=== PATIENT | female | born 1960 | race Asian ===

== ENCOUNTER 2018-08-06 11:51 | Emergency (ER) | payer OTHER ==
[~2018-08-06] VITALS: Ht 167.6 cm; Wt 89.8 kg
[2018-08-06 12:10] VITALS: BP 152/88; TEMP 99.2
[2018-08-06] MEDS ORDERED: ASA LOW DOSE81 MG PO (12:19)
[2018-08-06] MEDS ORDERED: LEXAPRO10 MG PO (12:20)
[2018-08-06] MEDS ORDERED: RANI150T78 PO (12:21)
[2018-08-06] MEDS ORDERED: TIROSINT100 MCG PO (12:22)
[2018-08-06] MEDS ORDERED: AMLODIPINE BESYLATE PO (12:23)
[2018-08-06] MEDS ORDERED: METOPROLOL25 M1 PO (12:23)
[2018-08-06] MEDS ORDERED: MAG OXIDE400 M2 PO (12:24)
[2018-08-06 14:15] LABS: PLATELET COUNT 279 K/uL (152-353)
== END 2018-08-06 15:11 | disposition home or self-care (01) ==
LOC: ED 11:51
DX: M47.896 Other spondylosis, lumbar region (principal)
CPT/HCPCS: 36415; 85027; 99283

== ENCOUNTER 2018-08-28 12:46 | Emergency (ER) | payer OTHER ==
[~2018-08-28] VITALS: Ht 167.6 cm; Wt 89.8 kg
[~2018-08-28 12:46] MED LIST: AMLODIPINE BESYLATE PO; ASA LOW DOSE81 MG PO; LEXAPRO10 MG PO; MAG OXIDE400 M2 PO; METOPROLOL25 M1 PO; RANI150T78 PO; TIROSINT100 MCG PO
[2018-08-28 15:28] VITALS: BP 152/87; TEMP 97.5
== END 2018-08-28 15:36 | disposition home or self-care (01) ==
LOC: ED 12:46
DX: M51.26 Other intervertebral disc displacement, lumbar region (principal)
CPT/HCPCS: 96372; 99282; J1885; J3490